=== PATIENT | male | born 1945 | race Caucasian/White ===

== ENCOUNTER 2018-11-16 06:28 | Day surgery (SDC) ==
[2018-11-16] MEDS: BETADINE OPTH PREP OP PRN ×2 (06:45→07:55)
[2018-11-16] MEDS: TETRACAINE 0.5% UNIT-DOSE OP PRN ×2 (06:45→07:55)
[2018-11-16] MEDS: CYCLOGYL 2% OPTH OP PRN ×3 (06:46→06:56)
[2018-11-16] MEDS ORDERED: DEX-MOXI-KETOR OPTH INJ 1/0.5/0.4 MG/ML IO ONE (07:01)
[2018-11-16] MEDS ORDERED: LIDOCAINE 1%/PHENYLEPHRINE 1.5% BSS (SURGERY) INTRAOCULA ONE (07:01)
[2018-11-16] MEDS ORDERED: BSS WITH EPINEPHRINE OP ONE (07:01)
[2018-11-16] MEDS ORDERED: BRIMONIDINE TARTRATE 0.2% OPTH SOL OP PRN (07:01)
[2018-11-16] MEDS ORDERED: ZOFRAN 4 MG/2 ML IVP ONE (07:01)
[2018-11-16] MEDS ORDERED: LIDOCAINE 1% 20 ML MDV ID STA (07:01)
[2018-11-16 07:07] VITALS: TEMP 97.7
[2018-11-16] MEDS ORDERED: ZOFRAN 4 MG/2 ML ONE (07:50)
[2018-11-16] MEDS ORDERED: SUBLIMAZE ONE (07:50)
[2018-11-16] MEDS ORDERED: VERSED ONE (07:50)
[2018-11-16 09:34] VITALS: BP 132/66
== END 2018-11-16 08:35 | disposition home or self-care (01) ==
LOC: SURG 06:28
PROVIDERS: ATTEND Ophthalmology
DX: H25.812 Combined forms of age-related cataract, left eye (principal)

== ENCOUNTER 2018-12-01 06:22 | Day surgery (SDC) ==
[2018-12-01] MEDS: TETRACAINE 0.5% UNIT-DOSE OP PRN ×2 (07:05→08:00)
[2018-12-01] MEDS: BETADINE OPTH PREP OP PRN ×2 (07:05→08:00)
[2018-12-01] MEDS: CYCLOGYL 2% OPTH OP PRN ×3 (07:06→07:16)
[2018-12-01] MEDS ORDERED: ZOFRAN 4 MG/2 ML IVP ONE (07:21)
[2018-12-01] MEDS ORDERED: LIDOCAINE 1% 20 ML MDV ID STA (07:21)
[2018-12-01 07:27] VITALS: TEMP 97.6
[2018-12-01] MEDS: BSS WITH EPINEPHRINE OP ONE ×2 (08:07→08:12)
[2018-12-01] MEDS: LIDOCAINE 1%/PHENYLEPHRINE 1.5% BSS (SURGERY) INTRAOCULA ONE ×2 (08:07→08:12)
[2018-12-01] MEDS: DEX-MOXI-KETOR OPTH INJ 1/0.5/0.4 MG/ML IO ONE ×2 (08:07→08:12)
[2018-12-01] MEDS ORDERED: SUBLIMAZE ONE (08:15)
[2018-12-01] MEDS ORDERED: VERSED ONE (08:15)
[2018-12-07 12:49] VITALS: BP 112/56
== END 2018-12-01 09:30 | disposition home or self-care (01) ==
LOC: SURG 06:22
PROVIDERS: ATTEND Ophthalmology
DX: H25.811 Combined forms of age-related cataract, right eye (principal)